=== PATIENT | male | born 1970 | race Caucasian/White ===

== ENCOUNTER 2016-10-21 13:15 | Inpatient (IN) | payer BC, MEDICAID ==
[2016-10-21 14:09] LABS: Mean Corpuscular Hemoglobin 29.7 pg (27-31); Mean Corpuscular Hgb Conc 34.2 g/dl (32-36); Mean Platelet Volume 11.1 fl (6.0-9.5); Platelet Count 182 K/mm3 (150-450); Red Blood Count 4.37 M/mm3 (4.7-6.0); Red Cell Distribution Width 13.2 % (11.5-14.0); White Blood Count 33.7 K/mm3 (4.0-10.5)
[2016-10-21 14:22] LABS: Total Cells Counted 100
[2016-10-21 14:23] LABS: Anion Gap 14.4 mmol/L (6.8-13.8); BUN/Creatinine Ratio 25.6 (9.0-21.6); Bilirubin, Total 1.7 mg/dL (0.0-1.1); Ca. Corrected For Albumin 9.6 mg/dL (8.4-10.2); Calcium * 8.3 mg/dL (7.9-10.9); Carbon Dioxide 29.4 mmol/L (24-32.6); Potassium 3.8 mmol/L (3.4-4.6)
[2016-10-21 14:27] LABS: Band 12 % (0-2.0); Dohle Bodies Trace; Lymphocyte 3 % (20-51); Monocyte 4 % (0-9); Neutrophil 81 % (42-75); Neutrophil # 27.3 K/mm3 (1.3-6.0); Platelet Estimate Normal (NORMAL); RBC Morphology Normal (NORMAL)
[2016-10-21] MEDS ORDERED: NORMAL SALINE 1,000 ML IV ONE (14:36)
[2016-10-21 15:08] LABS: Hemoglobin A1C 6.3 % (4.00-6.0)
[2016-10-21] MEDS ORDERED: AZITHROMYCIN 500 MG in DEXTROSE 5 % IN WATER 250 ML IV ONE ×2 (15:30)
--- NOTE | 2016-10-21 16:10 | ERNOTE ---
Date of Service: 10/21/16 Time Seen by Provider: 10/21/16 14:31 Stated Complaint: URI Source: patient Exam Limitations: no limitations Immunizations: IMMUNIZATION HX Immunizations Up to Date Yes History of Influenza Vaccine No Hx Pneumococcal Vaccination No Allergies/Adverse Reactions: Allergies No Known Allergies Allergy (Verified 10/21/16 13:55) Home Medications: HOME MEDICATIONS NK [No Home Medication] 07/14/15 [Last Taken Unknown] - History of Present Ilness Narrative: Pt. comes in with c/o SOB and cough for 7 days. Pt. states that he has also had malaise, weakness, diaphoresis, and fatigue. Pt. denies any abd pain, NVD, rhinorrhea, alleviating factors or aggravating factors. Pt. denies any chronic illnesses or medications. Pt. is a smoker but has not smoked in the past week. Review of Systems - Review of Systems Constitutional: Present: recent illness, fever, chills, diaphoresis, weakness, fatigue, malaise, weight loss EYE: Present: no symptoms reported ENT: Present: no symptoms reported Respiratory: Present: shortness of breath, cough. Absent: wheezing Cardiology: Present: no symptoms reported. Absent: chest pain, palpitations, edema Gastrointestinal/Abdominal: Present: no symptoms reported. Absent: nausea, vomiting, diarrhea Genitourinary: Present: no symptoms reported Musculoskeletal: Present: no symptoms reported. Absent: back pain, joint pain Skin: Present: no symptoms reported. Absent: rash, dryness Neurological: Present: no symptoms reported. Absent: headache Endocrine: Present: no symptoms reported All Other Systems: All systems neg except as marked - Patient's Past Medical History Patient History - Medical: No pertinent hx Patient History - Cardiac/Respiratory: No pertinent hx Patient History - Cancer: No Hx of Cancer Patient History - Surgical Procedures: Other Patient History - Other: None - Family History mom Family History - Medical: No pertinent hx dad Family History - Medical: No pertinent hx - Social History Living Situations: home Abuse History: No History of abuse Psych History: No pertinent hx Smoking Status: Current every day smoker Have you smoked in the past 12 months: Yes Alcohol Use: occasionally Drug Use: none - Immunizations Immunizations Up to Date: Yes Hx Pneumococcal Vaccination: No History of Influenza Vaccine: No Physical Exam - Physical Exam General Appearance: Present: wd/wn, alert, no apparent distress, cachetic Eye Exam: Normal inspection: bilateral, PERRL: bilateral, EOMI: bilateral Ears, Nose, Throat: Present: normal ENT inspection Neck: Present: normal inspection, nontender. Absent: lymphadenopathy (R), lymphadenopathy (L) Respiratory: Present: no respiratory distress, chest nontender, decreased breath sounds - LML LLL, rhonchi - MALLORY Cardiovascular/Chest: Present: no murmur, normal peripheral pulses, tachycardia Gastrointestinal/Abdominal: Present: normal bowel sounds, nontender, nondistended, soft, no organomegaly Back Exam: Present: normal inspection, normal range of motion, no CVA tenderness , no vertebral tenderness Extremity Exam: Present: normal inspection Neurological Exam: Present: alert, oriented, normal mood/affect, no motor/ sensory deficits Skin Exam: Present: diaphoresis, pallor, other - sallow ED Progress - Date and Time Seen: Date and Time: 10/21/16 16:07 Discussed with cristian palmer and we will admit pt. as he is in the beginning signs of MSOF. - Results and Orders Patient's Lab Results:: I have reviewed the patient's lab results. - Vital Signs Patient's Vital Signs:: I have reviewed the patient's vital signs. Vital Signs: Vital Signs 10/21/16 10/21/16 13:51 15:15 Temperature 35.6 C L Pulse Rate 101 H 101 H Respiratory 16 16 Rate Blood Pressure 106/63 106/63 O2 Sat by Pulse 96 96 Oximetry - X-Ray X-Ray #1 X-Ray: chest Interpretation: Reviewed by me X-ray Comments: MALLORY pneumonia - Progress/Reassessment Chief Complaint: Upper Respiratory Symptoms Progress:: Unchanged Departure - Departure Clinical Impression: SIRS (systemic inflammatory response syndrome), Acute renal insufficiency Pneumonia Qualifiers: Pneumonia type: due to unspecified organism Laterality: left Lung location: upper lobe of lung Qualified Code(s): J18.1 - Lobar pneumonia, unspecified organism Disposition: [facility] Condition: Serious
[2016-10-21 17:20] LABS: Urine Bilirubin 1 mg/dl (NEGATIVE); Urine Ketone Negative (NEGATIVE); Urine Nitrite Negative (NEGATIVE); Urine Protein 30 mg/dL (NEGATIVE); Urine pH 5.5 pH (5.0-7.0)
[2016-10-21 17:28] LABS: Urine Amorphous Sediment Few - 1+ (NONE-FEW); Urine Appearance Clear; Urine Bacteria 1+; Urine Blood 10 /ul (NEGATIVE); Urine Color Dark Yellow; Urine WBC None Seen /hpf (0-5)
[2016-10-21] MEDS ORDERED: ALBUTEROL SULFATE 2.5 MG/3 ML VIAL.NEB IH PRN (17:52)
[2016-10-21] MEDS ORDERED: FLU VACC QS2016-17 36MOS UP/PF 60 MCG/0.5 ML DISP.SYRIN IM ONE (18:05)
[2016-10-21] MEDS: NORMAL SALINE 1,000 ML IV PRN (18:15)
--- NOTE | 2016-10-21 20:56 | HP ---
Chief Complaint - Chief Complaint Date of Service: 10/21/16 Time of Service: 20:17 Chief Complaint: Weakness, Nausea, Vomiting, Abdominal Pain x 7 days. Source of HPI- Pt; reliable, ERP notes. History of Present Illness: Mr. José is a 46-yr-old WM with no pertinent medical history and lacks a PCP. Pt states that for the last 7 days, he has felt very sick. He is unable to state the chronological events of sickness or symptoms, but reports that he has had nausea/vomiting, abdominal pain,headaches & SOB. He thought that he had developed "stomach flu" and so resorted to treating his symptoms with Ibuprofen and Tylenol. He states he has had no appetite but has been forcing himself to drink clear liquids such as Seven-Up soda and sucking on Popsicles. He denies abdominal pain with food/liquid intake. He also denies diarrhea. He reports having low grade fevers and the highest temp he had at home was about 100.4. He states that as the days have gone by, he has progressively gotten weaker and the SOB has gotten worse. He reports having delusions 2 days ago. He finally chose to come to the [facility] ER today as he was not getting any better. During evaluation at the ED, the CXR showed MALLORY lung consolidation suggesting Pneumonia. He also had Leukocytosis with a WBC of 33,700 and left shift. His chemistries showed he had Acute Renal Injury with a BUN/CR of 54/2.11. His billirubin was elevated at 1.7 and ALP level was also high at 301. At the time of physical examination, he appears acutely ill and noted to be in moderate distress. He is visibly SOB and has adventitious LS. Pt will need to be admitted in-patient for a minimum of 2 midnights or more due to CURB -65 score of 2, and with the elevated ALP, Billiurubin, WBC, he requires further medical work-up to determine the etiology. - Patient's Past Medical History Patient History - Medical: No pertinent hx Patient History - Cardiac/Respiratory: No pertinent hx Patient History - Cancer: No Hx of Cancer Patient History - Surgical Procedures: Other Patient History - Other: None - Family History mom Family History - Medical: No pertinent hx dad Family History - Medical: No pertinent hx - Social History Living Situations: home Abuse History: No History of abuse Psych History: No pertinent hx Smoking Status: Current every day smoker Have you smoked in the past 12 months: Yes Do you dip or chew tobacco: No Patient requests Smoking Cessation Consult: Yes Initiate information on Smoking Cessation: Yes Alcohol Use: occasionally Drug Use: none - Immunizations Immunizations Up to Date: Yes Hx Pneumococcal Vaccination: No History of Influenza Vaccine: No Review Of Systems (GEN) - Review of Systems Generalized/Overall Review: Present: Weakness, Chills, Fever, Malaise, Diaphoresis, Fatigue, Weight loss EENTM: Absent: Eye Pain, Blurred Vision, Double Vision, Nose Congestion, Throat Pain Respiratory: Present: Cough, Shortness of Breath Cardiac: Present: Chest Pain. Absent: Palpitations, Syncope Abdominal: Present: Nausea, Vomiting, Abdominal Pain. Absent: Constipation, Diarrhea, Melena, Bright blood from rectum Genitourinary: Absent: Burning, Itching, Urgency, Frequency, Hematuria Musculoskeletal: Present: Muscle Pain. Absent: Joint Pain Neurological: Present: Headache. Absent: Anxiety, Depressed, Emotional Problems , Numbness Skin: Absent: Dryness, Lesions, Lumps Endocrine: Present: Intolerance to Cold, Flushing. Absent: Increased Thirst Misc: All systems neg except as marked Immunizations: IMMUNIZATION HX Immunizations Up to Date Yes History of Influenza Vaccine No Hx Pneumococcal Vaccination No Allergies/Adverse Reactions: Allergies Allergy/AdvReac Type Severity Reaction Status Date / Time No Known Allergies Allergy Verified 10/21/16 13:55 Home Medications: HOME MEDICATIONS NK [No Home Medication] 07/14/15 [Last Taken Unknown] Exam - Exam Vital Signs: Vital Signs - Last Taken Temp 36.8 C 10/21/16 16:50 Pulse 118 H 10/21/16 16:50 Resp 24 H 10/21/16 16:50 BP 146/48 10/21/16 16:50 Pulse Ox 91 10/21/16 16:50 Constitutional: Present: Alert, Oriented x3, Moderate distress, Other - Is ill appearing ENT Exam: Present: normal ENT inspection, hearing grossly normal, dry mucous membranes. Absent: nasal congestion, nasal drainage Eye Exam: bilateral eye: normal inspection, PERRL, conjunctivae pale Neck: Present: full range of motion, supple, normal inspection Back Exam: Present: normal inspection, no CVA tenderness Breasts: Present: Exam deferred Respiratory: Present: accessory muscle use, crackles, rhonchi Cardiovascular/Chest: Present: no chest tenderness, no edema, no JVD, no murmur , tachycardia Abdomen: Present: nondistended, tender, no bowel sounds /Rectal: Present: Exam deferred Extremity: Present: normal range of motion, non-tender, normal inspection, no pedal edema, no calf tenderness Skin Exam: Present: jaundice - Slightly Lymphatic: Present: no adenopathy Neurologic: Present: no motor/sensory deficits, alert, oriented x 3, dizzy/light -headedness Eye contact: Present: cooperative, good eye contact, normal speech Thoughts: Present: normal thought pattern, no apparent hallucination Diagnostic Studies: Abnormal Lab Results 10/21/16 Range/Units 17:11 Urine Protein 30 H (NEGATIVE) mg/dL Urine Blood 10 H (NEGATIVE) /ul Urine Bilirubin 1 H (NEGATIVE) mg/dl Urine Urobilinogen 2.0 H (NORMAL) EU/dl Urine RBC 5-10 H (0-5) /hpf Ur Epithelial Cells 5-10 H (0-5) /hpf Urine Bacteria 1+ H (NONE) Laboratory Results WBC 33.7 K/mm3 (4.0-10.5) H 10/21/16 14:05 RBC 4.37 M/mm3 (4.7-6.0) L 10/21/16 14:05 Hgb 13.0 gm/dL (13.5-18.0) L 10/21/16 14:05 Hct 38.0 % (42.0-52.0) L 10/21/16 14:05 MCV 87.0 fl (78-100) 10/21/16 14:05 MCH 29.7 pg (27-31) 10/21/16 14:05 MCHC 34.2 g/dl (32-36) 10/21/16 14:05 RDW 13.2 % (11.5-14.0) 10/21/16 14:05 Plt Count 182 K/mm3 (150-450) 10/21/16 14:05 MPV 11.1 fl (6.0-9.5) H 10/21/16 14:05 Neutrophils % (Manual) 81 % (42-75) H 10/21/16 14:05 Band Neuts % (Manual) 12 % (0-2.0) H 10/21/16 14:05 Lymphocytes % (Manual) 3 % (20-51) L 10/21/16 14:05 Monocytes % (Manual) 4 % (0-9) 10/21/16 14:05 Neutrophils # (Manual) 27.3 K/mm3 (1.3-6.0) H 10/21/16 14:05 Lymphocytes # (Manual) 1.0 k/mm3 (1.5-3.5) L 10/21/16 14:05 Monocytes # (Manual) 1.3 k/mm3 (0.0-1.0) H 10/21/16 14:05 Toxic Vacuolation 1+ 10/21/16 14:05 Dohle Bodies Trace 10/21/16 14:05 Platelet Estimate Normal (NORMAL) 10/21/16 14:05 RBC Morphology Normal (NORMAL) 10/21/16 14:05 ESR 107 mm/hr (0-10) H 10/21/16 14:20 Sodium 131 mmol/L (132-142) L 10/21/16 14:05 Plasma Sodium 134 mmol/L (130-142) 10/21/16 14:05 Potassium 3.8 mmol/L (3.4-4.6) 10/21/16 14:05 Chloride 91 mmol/L (97-106) L 10/21/16 14:05 Carbon Dioxide 29.4 mmol/L (24-32.6) 10/21/16 14:05 Anion Gap 14.4 mmol/L (6.8-13.8) H 10/21/16 14:05 BUN 54 mg/dL (6-23) H 10/21/16 14:05 Creatinine 2.11 mg/dL (0.4-1.4) H 10/21/16 14:05 Est GFR (Non-Af Amer) 36 mL/min (60-130) L 10/21/16 14:05 BUN/Creatinine Ratio 25.6 (9.0-21.6) H 10/21/16 14:05 Random Glucose 260 mg/dL (70-110) H 10/21/16 14:05 Mean Blood Glucose 124 mg/dL 10/21/16 14:20 Hemoglobin A1c 6.3 % (4.00-6.0) H 10/21/16 14:20 Lactic Acid, Venous 2.0 mmol/L (0.4-2.0) 10/21/16 14:10 Calcium 8.3 mg/dL (7.9-10.9) 10/21/16 14:05 Calcium Adj for Albumin 9.6 mg/dL (8.4-10.2) 10/21/16 14:05 Total Bilirubin 1.7 mg/dL (0.0-1.1) H 10/21/16 14:05 AST 35 U/L (0-48) 10/21/16 14:05 ALT 40 U/L (19-67) 10/21/16 14:05 Alkaline Phosphatase 301 U/L (50-170) H 10/21/16 14:05 C-Reactive Prot, Quant 46.8 mg/dL (0.0-0.9) H 10/21/16 14:10 Total Protein 7.0 gm/dL (6.2-8.2) 10/21/16 14:05 Albumin 2.0 gm/dl (3.4-5.0) L 10/21/16 14:05 Urine Color Dark yellow 10/21/16 17:11 Urine Appearance Clear 10/21/16 17:11 Urine pH 5.5 pH (5.0-7.0) 10/21/16 17:11 Ur Specific [place] 1.010 SP.GR. (1.005-1.030) 10/21/16 17:11 Urine Protein 30 mg/dL (NEGATIVE) H 10/21/16 17:11 Urine Glucose (UA) Negative mg/dL (NEGATIVE) 10/21/16 17:11 Urine Ketones Negative mg/dL (NEGATIVE) 10/21/16 17:11 Urine Blood 10 /ul (NEGATIVE) H 10/21/16 17:11 Urine Nitrate Negative (NEGATIVE) 10/21/16 17:11 Urine Bilirubin 1 mg/dl (NEGATIVE) H 10/21/16 17:11 Urine Ictotest Negative (NEGATIVE) 10/21/16 17:11 Prot Sulfosalicylic Acd Negative mg/dL (0) 10/21/16 17:11 Urine Urobilinogen 2.0 EU/dl (NORMAL) H 10/21/16 17:11 Ur Leukocyte Esterase Negative /ul (NEGATIVE) 10/21/16 17:11 Urine RBC 5-10 /hpf (0-5) H 10/21/16 17:11 Urine WBC None seen /hpf (0-5) 10/21/16 17:11 Ur Epithelial Cells 5-10 /hpf (0-5) H 10/21/16 17:11 Amorphous Sediment Few - 1+ (NONE-FEW) 10/21/16 17:11 Urine Bacteria 1+ (NONE) H 10/21/16 17:11 Influenza Type A Ag Negative (NEGATIVE) 10/21/16 15:35 Influenza Type B Ag Negative (NEGATIVE) 10/21/16 15:35 Mycoplasma pneumon IgM Non reactive (NonReactive) 10/21/16 14:43 Assessment/Plan - Assessment/Plan (1) Pneumonia Assessment: Mr. José presented with worsening SOB. At the time of physical examination, he appeared dyspneic and LS were noted to have coarse crackles. The CXR showed dense consolidation of the MALLORY and his WBC was 33,700 at the ED. Blood and sputum culture are pending. Will cover with IV Azithromycin and Rocephin as there is no history of any recent antibiotic use. Will utilize scheduled Xopenex for SOB and adventitious LS and encourage Cornet q 2 hrs W/A. Will check Urine Legionella & Strep Antigen urine. Problem: Acute Qualifiers: Pneumonia type: due to unspecified organism Laterality: left Lung location: upper lobe of lung Qualified Code(s): J18.1 - Lobar pneumonia, unspecified organism (2) Acute renal insufficiency Assessment: BUN/CR was 54/2.11- Is likely pre-renal due to dehydration from poor oral intake and fevers. Will hydrate with IVF. Monitor BMP in am. Problem: Acute (3) Abnormal LFTs (liver function tests) Assessment: Pt reported nausea/vomiting, fevers, malaise, Pt is noted to be mildly jaundiced and urine is dark beth in colour. He had elevated ALP, & GGT, Total Bilirubin, Direct Bilirubin. I suspect injury to the bile ducts. Consider US of the Liver/gall bladder to look for intrahepatic or extrahepatic biliary ductal dilatation, cholecystitis and gall stones. Problem: Acute (4) Acute cholecystitis Assessment: Pt is noted to have SIRS ( fever, elevated WBC & elavted CRP). Pt does not have RUQ pain as such but is tender throughout his abdomen on palpation. He has had fevers, N/V. Will need and Ultrasound of the Abdomen to confirm the diagnosis. CT of the Abdomen may have been better in order see a wider differential differential diagnoses, however, pt cannot undergo that imaging due to poor kidney function/elevated creatinine. Will keep NPO, Provide IVF hydration. Cover with Metronidazole 500mg IV Q 8 plus Cetriaxone 2 gm q 24 hours to cover for Enterococci, E coli, & Clostridium. Monitor closely as he could easily progress to Sepsis. Problem: Suspected (5) Leukocytosis Problem: Acute (6) Elevated serum alkaline phosphatase level Problem: Acute
[2016-10-21 21:30] LABS: Bilirubin Direct 1.5 mg/dL (0.0-0.3)
[2016-10-21] MEDS: LEVALBUTEROL HCL 1.25 MG/3 ML AMPUL IH SCH (22:23)
[2016-10-22] MEDS: ACETAMINOPHEN 325 MG TABLET PO PRN ×3 (00:33→20:16)
[2016-10-22] MEDS: metroNIDAZOLE/SODIUM CHLORIDE 500 MG/100 ML BAG IV SCH ×3 (02:55→17:58)
[2016-10-22] MEDS: LEVALBUTEROL HCL 1.25 MG/3 ML AMPUL IH SCH ×6 (02:59→23:27)
--- NOTE | 2016-10-22 06:35 | PN ---
Subjective - Date and Time Seen Date: 10/22/16 Time: 06:27 Subjective Narrative: Mr. José examined this am. He is alert and in no distress. He feels less SOB, but is still coughing productive thick [place] phlegm. He complains of generalized abd. Pain. IVF rate decreased to 75 ml/hr due to worsening LS & SOB. He was febrile with a temp of 38.5 overnight. HR remained Tachycardic until 0300am. This morning HR is < 100. No other issues according to nursing. Objective - Vitals Vitals: Last Vital Signs Temp 36.4 C L 10/22/16 02:24 Pulse 103 H 10/22/16 03:09 Resp 24 H 10/22/16 03:09 BP 150/75 10/22/16 02:24 Pulse Ox 99 10/22/16 02:59 - Abnormal Lab Findings Abnormal Lab Findings: Abnormal Lab Results 10/21/16 Range/Units 17:11 Urine Protein 30 H (NEGATIVE) mg/dL Urine Blood 10 H (NEGATIVE) /ul Urine Bilirubin 1 H (NEGATIVE) mg/dl Urine Urobilinogen 2.0 H (NORMAL) EU/dl Urine RBC 5-10 H (0-5) /hpf Ur Epithelial Cells 5-10 H (0-5) /hpf Urine Bacteria 1+ H (NONE) - Exam Constitutional: Present: Alert, Oriented x3, No distress ENT Exam: Present: normal ENT inspection. Absent: nasal congestion, nasal drainage Neck: Present: full range of motion, supple, normal inspection Respiratory: Present: no accessory muscle use, decreased breath sounds, rales - On the LT base. Cardiovascular/Chest: Present: normal peripheral pulses, regular rate, rhythm, no chest tenderness, no edema, no murmur Abdomen: Present: tender, guarding, no bowel sounds /Rectal: Present: Exam deferred Extremity: Present: normal range of motion, non-tender, normal inspection, no pedal edema, no calf tenderness Skin Exam: Present: warm/dry, no cyanosis Lymphatic: Present: no adenopathy Neurologic: Present: no motor/sensory deficits, alert, oriented x 3. Absent: dizzy/light-headedness Appearance: Present: appropriate appearance, appropriate insight Eye contact: Present: cooperative, good eye contact, normal speech Thoughts: Present: normal thought pattern, no apparent hallucination Assessment/Plan - Problems/Diagnosis (1) Pneumonia Problem: Acute Qualifiers: Pneumonia type: due to unspecified organism Laterality: left Lung location: upper lobe of lung Qualified Code(s): J18.1 - Lobar pneumonia, unspecified organism Narrative: Mr. José presented with worsening SOB. At the time of physical examination, he appeared dyspneic and LS were noted to have coarse crackles. The CXR showed dense consolidation of the MALLORY and his WBC was 33,700 at the ED. Blood and sputum culture are pending. Will cover with IV Azithromycin and Rocephin as there is no history of any recent antibiotic use. Will utilize scheduled Xopenex for SOB and adventitious LS and encourage Cornet q 2 hrs W/A. Will check Urine Legionella & Strep Antigen urine. CBC in am. 10/22- Feels less SOB but still coughing. Has not required any oxygen supplementation. WBC 41716-----> 31,700. (2) Acute renal insufficiency Problem: Acute Narrative: BUN/CR was 54/2.11- Is likely pre-renal due to dehydration from poor oral intake and fevers. Will hydrate with IVF. Monitor BMP in am. 10/22- IVF rate had to be tunred down to 75ml/hr due to worsening LS and SOB. This am BUN/CR- 38/1.42 Continue IVF hydration. (3) Abnormal LFTs (liver function tests) Problem: Acute Narrative: Pt reported nausea/vomiting, fevers, malaise, Pt is noted to be mildly jaundiced and urine is dark beth in colour. He had elevated ALP, & GGT, Total Bilirubin, Direct Bilirubin. I suspect injury to the bile ducts. Consider US of the Liver/gall bladder to look for intrahepatic or extrahepatic biliary ductal dilatation, cholecystitis and gall stones. (4) Acute cholecystitis Problem: Suspected Narrative: Pt is noted to have SIRS ( fever, elevated WBC & elavted CRP). Pt does not have RUQ pain as such but is tender throughout his abdomen on palpation. He has had fevers, N/V. Will need and Ultrasound of the Abdomen to confirm the diagnosis. CT of the Abdomen may have been better in order see a wider differential differential diagnoses, however, pt cannot undergo that imaging due to poor kidney function/elevated creatinine. Will keep NPO, Provide IVF hydration. Cover with Metronidazole 500mg IV Q 8 plus Cetriaxone 2 gm q 24 hours to cover for Enterococci, E coli, & Clostridium. Monitor closely as he could easily progress to Sepsis. (5) Leukocytosis Problem: Acute (6) Elevated serum alkaline phosphatase level Problem: Acute
[2016-10-22 06:36] LABS: Hematocrit 35.2 % (42.0-52.0); Hemoglobin 12.3 gm/dL (13.5-18.0); Mean Cell Volume 86.9 fl (78-100); Mean Corpuscular Hemoglobin 30.4 pg (27-31); Mean Corpuscular Hgb Conc 34.9 g/dl (32-36); Mean Platelet Volume 10.9 fl (6.0-9.5); Platelet Count 201 K/mm3 (150-450); Red Blood Count 4.05 M/mm3 (4.7-6.0); Red Cell Distribution Width 13.3 % (11.5-14.0); White Blood Count 31.7 K/mm3 (4.0-10.5)
[2016-10-22 06:42] LABS: Anion Gap 12.5 mmol/L (6.8-13.8); BUN/Creatinine Ratio 26.8 (9.0-21.6); Calcium * 7.7 mg/dL (7.9-10.9); Carbon Dioxide 28.7 mmol/L (24-32.6); Estimated Creat Clear 68.5; Potassium 3.2 mmol/L (3.4-4.6)
[2016-10-22 06:47] LABS: Total Cells Counted 100
[2016-10-22 06:49] LABS: Band 14 % (0-2.0); Dohle Bodies 1+; Immature Granulocyte 3 (0-1); Lymphocyte 1 % (20-51); Neutrophil 82 % (42-75); Platelet Estimate Normal (NORMAL)
[2016-10-22 06:50] LABS: RBC Morphology Normal (NORMAL); Toxic Granulation 1+
[2016-10-22] MEDS: NORMAL SALINE 1,000 ML IV PRN (07:49)
[2016-10-22] MEDS ORDERED: AZITHROMYCIN 250 MG TABLET PO SCH (09:00)
[2016-10-22] MEDS ORDERED: FLU VACC QS2016-17 36MOS UP/PF 60 MCG/0.5 ML DISP.SYRIN IM ONE (09:00)
[2016-10-22] MEDS: HEPARIN SODIUM,PORCINE 5,000 UNITS/ML VIAL SC SCH ×2 (09:54→20:16)
[2016-10-22] MEDS ORDERED: POTASSIUM CHLORIDE 40 MEQ in NORMAL SALINE 1,000 ML IV SCH (13:15)
[2016-10-22] MEDS: AZITHROMYCIN 500 MG in DEXTROSE 5 % IN WATER 250 ML IV SCH ×2 (15:45)
[2016-10-23] MEDS: ACETAMINOPHEN 325 MG TABLET PO PRN ×2 (01:35→11:40)
[2016-10-23] MEDS: LEVALBUTEROL HCL 1.25 MG/3 ML AMPUL IH SCH ×6 (02:13→23:17)
[2016-10-23] MEDS: metroNIDAZOLE/SODIUM CHLORIDE 500 MG/100 ML BAG IV SCH ×3 (02:16→19:13)
[2016-10-23] MEDS: POTASSIUM CHLORIDE 20 MEQ in NORMAL SALINE 1,000 ML IV SCH ×3 (02:17→23:07)
[2016-10-23 06:20] LABS: Hemoglobin 10.7 gm/dL (13.5-18.0); Mean Cell Volume 87.6 fl (78-100); Mean Corpuscular Hemoglobin 30.2 pg (27-31); Mean Corpuscular Hgb Conc 34.5 g/dl (32-36); Mean Platelet Volume 11.2 fl (6.0-9.5); Platelet Count 199 K/mm3 (150-450); Red Blood Count 3.54 M/mm3 (4.7-6.0); Red Cell Distribution Width 13.6 % (11.5-14.0); White Blood Count 16.1 K/mm3 (4.0-10.5)
[2016-10-23 06:21] LABS: Total Cells Counted 100
[2016-10-23 06:35] LABS: Albumin * 1.6 gm/dl (3.4-5.0); Anion Gap 11.2 mmol/L (6.8-13.8); BUN/Creatinine Ratio 22.7 (9.0-21.6); Bilirubin, Total 0.6 mg/dL (0.0-1.1); Ca. Corrected For Albumin 9.3 mg/dL (8.4-10.2); Calcium * 7.7 mg/dL (7.9-10.9); Chol/HDL Risk Ratio 13.2 mg/dL (3.3-5.0); Potassium 3.2 mmol/L (3.4-4.6); Total Protein 5.7 gm/dL (6.2-8.2)
[2016-10-23 06:46] LABS: Band 3 % (0-2.0); Immature Granulocyte 9 (0-1); Lymphocyte 9 % (20-51); Monocyte 9 % (0-9); Neutrophil 70 % (42-75); Neutrophil # 11.3 K/mm3 (1.3-6.0)
[2016-10-23 06:47] LABS: Platelet Estimate Normal (NORMAL)
[2016-10-23 06:48] LABS: Dohle Bodies Trace; Toxic Granulation 1+
[2016-10-23 06:49] LABS: Giant Platelets 1+
[2016-10-23 06:50] LABS: Hypochromia 1+
[2016-10-23 06:51] LABS: Target Cells Trace
[2016-10-23] MEDS: HEPARIN SODIUM,PORCINE 5,000 UNITS/ML VIAL SC SCH ×2 (08:41→21:10)
[2016-10-23] MEDS ORDERED: POTASSIUM CHLORIDE 20 MEQ TABLET.SA PO ONE (12:30)
--- NOTE | 2016-10-23 12:31 | PN ---
Subjective - Date and Time Seen Date: 10/23/16 Time: 12:16 Subjective Narrative: Patient continues to feel better. WBC is down to 16.1, LFT's improving. Objective - Review of Systems Generalized/Overall Review: Denies: Chills, Fever EENTM: Reports: No Symptoms Reported Respiratory: Reports: Cough. Denies: Shortness of Breath, Wheezing Cardiac: Denies: Chest Pain, Edema, Palpitations Abdominal: Denies: Nausea, Vomiting Genitourinary Symptoms: Denies: Urgency, Frequency Musculoskeletal Complaints: Denies: Joint Pain - Vitals Vitals: Last Vital Signs Temp 36.5 C 10/23/16 11:26 Pulse 88 10/23/16 11:33 Resp 19 10/23/16 11:33 BP 137/73 10/23/16 11:26 Pulse Ox 96 10/23/16 11:33 - Abnormal Lab Findings Abnormal Lab Findings: Abnormal Lab Results 10/23/16 10/23/16 Range/Units 05:48 05:48 WBC 16.1 H D (4.0-10.5) K/mm3 RBC 3.54 L (4.7-6.0) M/mm3 Hgb 10.7 L (13.5-18.0) gm/dL Hct 31.0 L (42.0-52.0) % MPV 11.2 H (6.0-9.5) fl Band Neuts % (Manual) 3 H (0-2.0) % Lymphocytes % (Manual) 9 L (20-51) % Immature Granulocytes 9 H (0-1) Neutrophils # (Manual) 11.3 H (1.3-6.0) K/mm3 Lymphocytes # (Manual) 1.4 L (1.5-3.5) k/mm3 Monocytes # (Manual) 1.4 H (0.0-1.0) k/mm3 Potassium 3.2 L (3.4-4.6) mmol/L BUN/Creatinine Ratio 22.7 H (9.0-21.6) Random Glucose 153 H (70-110) mg/dL Calcium 7.7 L (7.9-10.9) mg/dL AST 57 H (0-48) U/L Alkaline Phosphatase 242 H (50-170) U/L Total Protein 5.7 L (6.2-8.2) gm/dL Albumin 1.6 L (3.4-5.0) gm/dl HDL Cholesterol 11 L (40-60) mg/dL Cholesterol/HDL Ratio 13.2 H (3.3-5.0) mg/dL - Exam Constitutional: Present: Alert, Oriented x3, Cooperative ENT Exam: Present: hearing grossly normal Neck: Present: supple Breasts: Present: Exam deferred Respiratory: Present: decreased breath sounds, No rales, No wheezing Cardiovascular/Chest: Present: regular rate, rhythm, no JVD, no murmur Abdomen: Present: Normal bowel sounds, soft, nontender, nondistended Extremity: Present: no pedal edema, no calf tenderness Assessment/Plan - Problems/Diagnosis (1) Pneumonia Problem: Acute Qualifiers: Pneumonia type: due to unspecified organism Laterality: left Lung location: upper lobe of lung Qualified Code(s): J18.1 - Lobar pneumonia, unspecified organism Narrative: clinically improving. WBC coming down. (2) Abnormal LFTs (liver function tests) Problem: Acute Narrative: improving likely due to SIRS/sepsis. (3) Acute renal insufficiency Problem: Resolved Narrative: although BUN/Cr ratio is still elevated. continue with IVF. Will give Klor Con . (4) Leukocytosis Problem: Acute Qualifiers: Leukocytosis type: bandemia Qualified Code(s): D72.825 - Bandemia Narrative: improving
[2016-10-23] MEDS: AZITHROMYCIN 500 MG in DEXTROSE 5 % IN WATER 250 ML IV SCH ×2 (16:03)
[2016-10-24] MEDS: metroNIDAZOLE/SODIUM CHLORIDE 500 MG/100 ML BAG IV SCH ×3 (01:41→17:36)
[2016-10-24] MEDS: LEVALBUTEROL HCL 1.25 MG/3 ML AMPUL IH SCH ×4 (03:00→15:39)
--- NOTE | 2016-10-24 07:57 | PN ---
Subjective - Date and Time Seen Date: 10/24/16 Time: 07:53 Subjective Narrative: Patient feeling better. Eager to go home. Objective - Review of Systems Generalized/Overall Review: Denies: Chills, Fever EENTM: Reports: No Symptoms Reported Respiratory: Reports: Cough, Shortness of Breath Cardiac: Denies: Chest Pain, Palpitations Abdominal: Denies: Nausea, Vomiting Genitourinary Symptoms: Denies: Urgency, Frequency Musculoskeletal Complaints: Denies: Joint Pain - Vitals Vitals: Last Vital Signs Temp 37.2 C 10/24/16 07:35 Pulse 82 10/24/16 07:35 Resp 18 10/24/16 07:35 BP 126/69 10/24/16 07:35 Pulse Ox 99 10/24/16 07:35 - Exam Constitutional: Present: Alert, Oriented x3, Cooperative ENT Exam: Present: hearing grossly normal Neck: Present: supple Breasts: Present: Exam deferred Respiratory: Present: decreased breath sounds, No rales, No wheezing Cardiovascular/Chest: Present: regular rate, rhythm, no JVD, no murmur Abdomen: Present: Normal bowel sounds, soft, nontender Extremity: Present: no pedal edema, no calf tenderness Assessment/Plan - Problems/Diagnosis (1) Pneumonia Problem: Acute Qualifiers: Pneumonia type: due to unspecified organism Laterality: left Lung location: upper lobe of lung Qualified Code(s): J18.1 - Lobar pneumonia, unspecified organism Narrative: follow up labs and CXR. possible discharge in a.m. if continues to improve. (2) Abnormal LFTs (liver function tests) Problem: Acute Narrative: follow up labs. (3) Acute renal insufficiency Problem: Resolved (4) Leukocytosis Problem: Acute Qualifiers: Leukocytosis type: bandemia Qualified Code(s): D72.825 - Bandemia
[2016-10-24 08:26] LABS: Albumin * 1.6 gm/dl (3.4-5.0); Anion Gap 12.3 mmol/L (6.8-13.8); BUN/Creatinine Ratio 17.4 (9.0-21.6); Bilirubin, Total 0.7 mg/dL (0.0-1.1); Ca. Corrected For Albumin 9.1 mg/dL (8.4-10.2); Calcium * 7.5 mg/dL (7.9-10.9); Carbon Dioxide 24.8 mmol/L (24-32.6); Potassium 4.1 mmol/L (3.4-4.6); Total Protein 5.6 gm/dL (6.2-8.2)
[2016-10-24] MEDS: POTASSIUM CHLORIDE 20 MEQ in NORMAL SALINE 1,000 ML IV SCH ×2 (08:28→22:23)
[2016-10-24 08:30] LABS: Hematocrit 33.3 % (42.0-52.0); Hemoglobin 11.2 gm/dL (13.5-18.0); Mean Cell Volume 89.3 fl (78-100); Mean Corpuscular Hgb Conc 33.6 g/dl (32-36); Mean Platelet Volume 11.1 fl (6.0-9.5); Platelet Count 229 K/mm3 (150-450); Red Blood Count 3.73 M/mm3 (4.7-6.0); Red Cell Distribution Width 13.7 % (11.5-14.0); White Blood Count 13.2 K/mm3 (4.0-10.5)
[2016-10-24] MEDS: HEPARIN SODIUM,PORCINE 5,000 UNITS/ML VIAL SC SCH ×2 (08:30→21:51)
[2016-10-24 08:31] LABS: Total Cells Counted 100
[2016-10-24 08:55] LABS: Atypical (Reactive) Lymph 1 % (0-2); Band 5 % (0-2.0); Eosinophil 3 % (0-3); Immature Granulocyte 4 (0-1); Lymphocyte 11 % (20-51); Monocyte 11 % (0-9); Neutrophil 65 % (42-75); Neutrophil # 8.6 K/mm3 (1.3-6.0)
[2016-10-24 08:56] LABS: Platelet Estimate Normal (NORMAL)
[2016-10-24 08:58] LABS: RBC Morphology Normal (NORMAL)
[2016-10-24] MEDS ORDERED: FLU VACC QS2016-17 36MOS UP/PF 60 MCG/0.5 ML DISP.SYRIN IM ONE (09:00)
[2016-10-24 09:45] LABS: Hepatitis C Antibody NON-REACTIVE (NON-REACTIVE); Hepatitis Panel Confirmation DNR
[2016-10-24 10:50] LABS: Hepatitis A IgM Antibody NON-REACTIVE (NON-REACTIVE); Hepatitis B Surface Antigen NON-REACTIVE (NON-REACTIVE)
[2016-10-24] MEDS: AZITHROMYCIN 500 MG in DEXTROSE 5 % IN WATER 250 ML IV SCH ×2 (14:12)
[2016-10-24] MEDS: ACETAMINOPHEN 325 MG TABLET PO PRN (16:38)
[2016-10-24] MEDS ORDERED: LEVALBUTEROL HCL 1.25 MG/3 ML AMPUL IH PRN (17:30)
[2016-10-25] MEDS: metroNIDAZOLE/SODIUM CHLORIDE 500 MG/100 ML BAG IV SCH ×3 (01:26→17:38)
[2016-10-25] MEDS: POTASSIUM CHLORIDE 20 MEQ in NORMAL SALINE 1,000 ML IV SCH ×2 (07:21→19:40)
[2016-10-25 08:04] LABS: Hematocrit 36.3 % (42.0-52.0); Mean Cell Volume 89.4 fl (78-100); Mean Corpuscular Hemoglobin 29.6 pg (27-31); Mean Corpuscular Hgb Conc 33.1 g/dl (32-36); Mean Platelet Volume 10.4 fl (6.0-9.5); Platelet Count 293 K/mm3 (150-450); Red Blood Count 4.06 M/mm3 (4.7-6.0); Red Cell Distribution Width 13.7 % (11.5-14.0); White Blood Count 17.7 K/mm3 (4.0-10.5)
[2016-10-25 08:05] LABS: Total Cells Counted 100
[2016-10-25 08:17] LABS: Albumin * 1.7 gm/dl (3.4-5.0); Anion Gap 12.5 mmol/L (6.8-13.8); BUN/Creatinine Ratio 16.5 (9.0-21.6); Bilirubin, Total 0.7 mg/dL (0.0-1.1); Ca. Corrected For Albumin 9.1 mg/dL (8.4-10.2); Calcium * 7.6 mg/dL (7.9-10.9); Carbon Dioxide 23.8 mmol/L (24-32.6); Potassium 4.3 mmol/L (3.4-4.6); Total Protein 5.9 gm/dL (6.2-8.2)
[2016-10-25 08:33] LABS: Atypical (Reactive) Lymph 3 % (0-2); Band 9 % (0-2.0); Immature Granulocyte 9 (0-1); Lymphocyte 11 % (20-51); Monocyte 8 % (0-9); Neutrophil 60 % (42-75); Neutrophil # 10.6 K/mm3 (1.3-6.0)
[2016-10-25 08:34] LABS: Platelet Estimate Normal (NORMAL)
[2016-10-25 08:36] LABS: Hypochromia Trace
--- NOTE | 2016-10-25 08:37 | PN ---
Subjective - Date and Time Seen Date: 10/25/16 Time: 08:26 Subjective Narrative: Patient is afebrile. CXR shows new opacity in the LLL but WBC continues to go down. LFT's are up again. His girlfriend gave him OTC Tylenol last night. Objective - Review of Systems Generalized/Overall Review: Denies: Chills, Fever EENTM: Reports: No Symptoms Reported Respiratory: Reports: Cough, Shortness of Breath Cardiac: Reports: Chest Pain. Denies: Edema, Palpitations Abdominal: Denies: Nausea, Vomiting, Abdominal Pain Genitourinary Symptoms: Denies: Urgency, Frequency Musculoskeletal Complaints: Denies: Joint Pain - Vitals Vitals: Last Vital Signs Temp 37.3 C 10/25/16 06:42 Pulse 71 10/25/16 07:21 Resp 20 10/25/16 06:42 BP 144/66 10/25/16 06:42 Pulse Ox 93 10/25/16 06:42 - Abnormal Lab Findings Abnormal Lab Findings: Abnormal Lab Results 10/24/16 10/24/16 10/25/16 Range/Units 08:06 08:06 08:00 WBC 13.2 H 17.7 H D (4.0-10.5) K/mm3 RBC 3.73 L 4.06 L (4.7-6.0) M/mm3 Hgb 11.2 L 12.0 L (13.5-18.0) gm/dL Hct 33.3 L 36.3 L (42.0-52.0) % MPV 11.1 H 10.4 H (6.0-9.5) fl Band Neuts % (Manual) 5 H (0-2.0) % Lymphocytes % (Manual) 11 L (20-51) % Monocytes % (Manual) 11 H (0-9) % Immature Granulocytes 4 H (0-1) Neutrophils # (Manual) 8.6 H (1.3-6.0) K/mm3 Monocytes # (Manual) 1.5 H (0.0-1.0) k/mm3 Random Glucose 125 H (70-110) mg/dL Calcium 7.5 L (7.9-10.9) mg/dL AST 103 H (0-48) U/L ALT 107 H (19-67) U/L Alkaline Phosphatase 277 H (50-170) U/L Total Protein 5.6 L (6.2-8.2) gm/dL Albumin 1.6 L (3.4-5.0) gm/dl - Exam Constitutional: Present: Alert, Oriented x3, Cooperative ENT Exam: Present: hearing grossly normal Neck: Present: supple Breasts: Present: Exam deferred Respiratory: Present: decreased breath sounds, No rales, No wheezing Cardiovascular/Chest: Present: regular rate, rhythm, no JVD, no murmur Abdomen: Present: Normal bowel sounds, soft, nontender, nondistended Extremity: Present: no pedal edema, no calf tenderness Assessment/Plan - Problems/Diagnosis (1) Pneumonia Problem: Acute Qualifiers: Pneumonia type: due to unspecified organism Laterality: left Lung location: upper lobe of lung Qualified Code(s): J18.1 - Lobar pneumonia, unspecified organism Narrative: CXR shows stable findings with new opacity in LLL- aspiraation? on Metronidazole /Rocephin. consider Clindamyicn but WBC is going down 13.1 and clinically better. Continue IV antibiotics. possible discharge in the morning . will change to oral Abx when WBC is back to normal. (2) Abnormal LFTs (liver function tests) Problem: Acute Narrative: elevated again. Girlfriend gave him " OTC tyelnol " last night. consider UDS. he was told that he should tell the nurse before taking any medication from the outside. (3) Acute renal insufficiency Problem: Resolved (4) Leukocytosis Problem: Acute Qualifiers: Leukocytosis type: bandemia Qualified Code(s): D72.825 - Bandemia Narrative: continues to improve
[2016-10-25] MEDS: HEPARIN SODIUM,PORCINE 5,000 UNITS/ML VIAL SC SCH ×2 (08:38→20:07)
[2016-10-25] MEDS: AZITHROMYCIN 500 MG in DEXTROSE 5 % IN WATER 250 ML IV SCH ×2 (14:40)
[2016-10-25 17:45] LABS: Cocaine Ur Negative (NEGATIVE); Urine Barbiturate Negative (NEGATIVE); Urine Benzodiazepines Negative (NEGATIVE); Urine Opiates Negative (NEGATIVE); Urine PCP Negative (NEGATIVE); Urine THC Negative (NEGATIVE)
[2016-10-25] MEDS: ACETAMINOPHEN 325 MG TABLET PO PRN (19:01)
[2016-10-26] MEDS: POTASSIUM CHLORIDE 20 MEQ in NORMAL SALINE 1,000 ML IV SCH ×4 (00:46→23:45)
[2016-10-26] MEDS: metroNIDAZOLE/SODIUM CHLORIDE 500 MG/100 ML BAG IV SCH (01:31)
[2016-10-26] MEDS: ACETAMINOPHEN 325 MG TABLET PO PRN ×2 (05:07→16:08)
[2016-10-26 05:46] LABS: Hematocrit 33.3 % (42.0-52.0); Hemoglobin 11.2 gm/dL (13.5-18.0); Mean Cell Volume 90.2 fl (78-100); Mean Corpuscular Hemoglobin 30.4 pg (27-31); Mean Corpuscular Hgb Conc 33.6 g/dl (32-36); Mean Platelet Volume 10.6 fl (6.0-9.5); Platelet Count 346 K/mm3 (150-450); Red Blood Count 3.69 M/mm3 (4.7-6.0); Red Cell Distribution Width 13.4 % (11.5-14.0); White Blood Count 15.4 K/mm3 (4.0-10.5)
[2016-10-26 05:51] LABS: Total Cells Counted 100
[2016-10-26 06:05] LABS: Atypical (Reactive) Lymph 2 % (0-2); Band 9 % (0-2.0); Giant Platelets 1+; Immature Granulocyte 9 (0-1); Lymphocyte 9 % (20-51); Monocyte 2 % (0-9); Neutrophil 69 % (42-75); Neutrophil # 10.6 K/mm3 (1.3-6.0); Platelet Estimate Normal (NORMAL); Polychromasia 1+
[2016-10-26 06:06] LABS: Albumin * 1.7 gm/dl (3.4-5.0); Anion Gap 7.7 mmol/L (6.8-13.8); BUN/Creatinine Ratio 14.3 (9.0-21.6); Bilirubin, Total 0.5 mg/dL (0.0-1.1); Calcium * 7.5 mg/dL (7.9-10.9); Carbon Dioxide 26.5 mmol/L (24-32.6); Potassium 4.2 mmol/L (3.4-4.6); Total Protein 5.4 gm/dL (6.2-8.2)
[2016-10-26] MEDS: HEPARIN SODIUM,PORCINE 5,000 UNITS/ML VIAL SC SCH ×2 (09:07→21:28)
--- NOTE | 2016-10-26 09:39 | PN ---
Subjective - Date and Time Seen Date: 10/26/16 Time: 09:36 Subjective Narrative: Clinically patient is feeling better except for chest pain when he coughs on his left. His WBC is up to 17 as well as his LFT. He says it was vicodin that he got from his girlfriend. Objective - Review of Systems Generalized/Overall Review: Denies: Chills, Fever EENTM: Reports: No Symptoms Reported Respiratory: Reports: Cough. Denies: Shortness of Breath Cardiac: Reports: Chest Pain. Denies: Edema, Palpitations Abdominal: Denies: Nausea, Vomiting, Abdominal Pain Genitourinary Symptoms: Denies: Urgency, Frequency Musculoskeletal Complaints: Denies: Joint Pain - Vitals Vitals: Last Vital Signs Temp 36.6 C 10/26/16 07:44 Pulse 88 10/26/16 08:00 Resp 20 10/26/16 07:44 BP 120/68 10/26/16 07:44 Pulse Ox 96 10/26/16 07:44 - Abnormal Lab Findings Abnormal Lab Findings: Abnormal Lab Results 10/25/16 10/26/16 10/26/16 Range/Units 08:00 05:00 05:00 WBC 15.4 H (4.0-10.5) K/mm3 RBC 3.69 L (4.7-6.0) M/mm3 Hgb 11.2 L (13.5-18.0) gm/dL Hct 33.3 L (42.0-52.0) % MPV 10.6 H (6.0-9.5) fl Band Neuts % (Manual) 9 H 9 H (0-2.0) % Lymphocytes % (Manual) 11 L 9 L (20-51) % Immature Granulocytes 9 H 9 H (0-1) Neutrophils # (Manual) 10.6 H 10.6 H (1.3-6.0) K/mm3 Lymphocytes # (Manual) 1.4 L (1.5-3.5) k/mm3 Monocytes # (Manual) 1.4 H (0.0-1.0) k/mm3 Atypic/Reactive Lymphs 3 H (0-2) % Random Glucose 124 H (70-110) mg/dL Calcium 7.5 L (7.9-10.9) mg/dL AST 78 H (0-48) U/L ALT 155 H (19-67) U/L Alkaline Phosphatase 242 H (50-170) U/L Total Protein 5.4 L (6.2-8.2) gm/dL Albumin 1.7 L (3.4-5.0) gm/dl - Exam Constitutional: Present: Alert, Oriented x3, Cooperative ENT Exam: Present: hearing grossly normal Neck: Present: supple Respiratory: Present: decreased breath sounds, No rales, No wheezing Cardiovascular/Chest: Present: regular rate, rhythm, no JVD, no murmur Abdomen: Present: Normal bowel sounds, soft, nontender, nondistended Extremity: Present: no pedal edema, no calf tenderness Assessment/Plan - Problems/Diagnosis (1) Pneumonia Problem: Acute Qualifiers: Pneumonia type: due to unspecified organism Laterality: left Lung location: upper lobe of lung Qualified Code(s): J18.1 - Lobar pneumonia, unspecified organism Narrative: WBC rising up again. Tmax 38.3 . new LLL consolidation, with narcotic intake- silent aspiration? r/o aspiration pneumonia- will change to Zosyn and add vanco. continue with Azitrhromycin. he denies diarrhea. (2) Abnormal LFTs (liver function tests) Problem: Acute Narrative: starting go up again. took vicodin the other night. (3) Acute renal insufficiency Problem: Resolved (4) Leukocytosis Problem: Acute Qualifiers: Leukocytosis type: bandemia Qualified Code(s): D72.825 - Bandemia Narrative: starting to go up again.
[2016-10-26] MEDS ORDERED: PIPERACILLIN SODIUM/TAZOBACTAM 2.25 GM VIAL IV SCH (09:45)
[2016-10-26] MEDS: PIPERACILLIN SODIUM/TAZOBACTAM 3.375 GM in DEXTROSE 5 % IN WATER 100 ML IV SCH ×4 (11:46→17:30)
[2016-10-26] MEDS: VANCOMYCIN HCL 1.5 GM in DEXTROSE 5 % IN WATER 500 ML IV SCH ×2 (14:13)
[2016-10-26] MEDS: AZITHROMYCIN 500 MG in DEXTROSE 5 % IN WATER 250 ML IV SCH ×2 (16:00)
[2016-10-27] MEDS: PIPERACILLIN SODIUM/TAZOBACTAM 3.375 GM in DEXTROSE 5 % IN WATER 100 ML IV SCH ×6 (02:10→17:53)
[2016-10-27] MEDS: VANCOMYCIN HCL 1.5 GM in DEXTROSE 5 % IN WATER 500 ML IV SCH ×4 (02:18→13:34)
[2016-10-27] MEDS: ACETAMINOPHEN 325 MG TABLET PO PRN ×2 (05:27→20:06)
[2016-10-27 06:47] LABS: Hematocrit 33.2 % (42.0-52.0); Mean Cell Volume 91.2 fl (78-100); Mean Corpuscular Hemoglobin 30.2 pg (27-31); Mean Corpuscular Hgb Conc 33.1 g/dl (32-36); Mean Platelet Volume 10.3 fl (6.0-9.5); Platelet Count 419 K/mm3 (150-450); Red Blood Count 3.64 M/mm3 (4.7-6.0); Red Cell Distribution Width 13.2 % (11.5-14.0); White Blood Count 13.5 K/mm3 (4.0-10.5)
[2016-10-27 06:53] LABS: Total Cells Counted 100
[2016-10-27 07:10] LABS: Albumin * 1.7 gm/dl (3.4-5.0); Anion Gap 13.3 mmol/L (6.8-13.8); BUN/Creatinine Ratio 14.6 (9.0-21.6); Bilirubin, Total 0.5 mg/dL (0.0-1.1); Ca. Corrected For Albumin 8.8 mg/dL (8.4-10.2); Calcium * 7.3 mg/dL (7.9-10.9); Carbon Dioxide 23.7 mmol/L (24-32.6); Total Protein 5.5 gm/dL (6.2-8.2)
[2016-10-27 07:18] LABS: Band 4 % (0-2.0); Eosinophil 1 % (0-3); Immature Granulocyte 7 (0-1); Lymphocyte 14 % (20-51); Monocyte 3 % (0-9); Neutrophil 71 % (42-75); Neutrophil # 9.6 K/mm3 (1.3-6.0)
[2016-10-27 07:19] LABS: Platelet Estimate Normal (NORMAL); RBC Morphology Normal (NORMAL)
[2016-10-27] MEDS: POTASSIUM CHLORIDE 20 MEQ in NORMAL SALINE 1,000 ML IV SCH (07:49)
--- NOTE | 2016-10-27 08:31 | PN ---
Subjective - Date and Time Seen Date: 10/27/16 Time: 08:27 Subjective Narrative: Patient CTS was postponed due to inability to find vein for proper size IV. Low grade fever. WBC is trending down. Objective - Review of Systems Generalized/Overall Review: Reports: Fever. Denies: Weakness, Chills EENTM: Reports: No Symptoms Reported Respiratory: Reports: Cough, Shortness of Breath. Denies: Wheezing Cardiac: Denies: Chest Pain, Palpitations Abdominal: Denies: Nausea, Vomiting Genitourinary Symptoms: Denies: Urgency, Frequency Musculoskeletal Complaints: Denies: Joint Pain - Vitals Vitals: Last Vital Signs Temp 37 C 10/27/16 07:16 Pulse 88 10/27/16 07:16 Resp 18 10/27/16 07:16 BP 128/76 10/27/16 07:16 Pulse Ox 98 10/27/16 07:16 - Abnormal Lab Findings Abnormal Lab Findings: Abnormal Lab Results 10/27/16 10/27/16 Range/Units 06:36 06:36 WBC 13.5 H (4.0-10.5) K/mm3 RBC 3.64 L (4.7-6.0) M/mm3 Hgb 11.0 L (13.5-18.0) gm/dL Hct 33.2 L (42.0-52.0) % MPV 10.3 H (6.0-9.5) fl Band Neuts % (Manual) 4 H (0-2.0) % Lymphocytes % (Manual) 14 L (20-51) % Immature Granulocytes 7 H (0-1) Neutrophils # (Manual) 9.6 H (1.3-6.0) K/mm3 Carbon Dioxide 23.7 L (24-32.6) mmol/L Random Glucose 130 H (70-110) mg/dL Calcium 7.3 L (7.9-10.9) mg/dL ALT 115 H (19-67) U/L Alkaline Phosphatase 211 H (50-170) U/L Total Protein 5.5 L (6.2-8.2) gm/dL Albumin 1.7 L (3.4-5.0) gm/dl - Exam Constitutional: Present: Alert, Oriented x3, Cooperative ENT Exam: Present: hearing grossly normal Neck: Present: supple Breasts: Present: Exam deferred Respiratory: Present: decreased breath sounds, No rales, No wheezing Cardiovascular/Chest: Present: regular rate, rhythm, no JVD, no murmur Abdomen: Present: Normal bowel sounds, soft, nontender, nondistended Extremity: Present: no pedal edema, no calf tenderness Assessment/Plan - Problems/Diagnosis (1) Pneumonia Problem: Acute Qualifiers: Pneumonia type: due to unspecified organism Laterality: left Lung location: upper lobe of lung Qualified Code(s): J18.1 - Lobar pneumonia, unspecified organism Narrative: came in with CAP and then possible aspiration pneumonia while in hospital . IV antibiotics changed from IV Rocephin, Metronidazole , Azitrhomycin to IV Zosyn, Vanco, Azityhromycin for possible aspiration due to new consolidation LLL after taking narcotics from his girlfriend. would have wanted CTS to help with management. will repeat CXR. will increase IVF to help vein open up and reschedule CTS in am. ADDENDUM: He did have a CTS w/o contrast. (2) Abnormal LFTs (liver function tests) Problem: Acute Narrative: continues to improve again. (3) Acute renal insufficiency Problem: Resolved (4) Leukocytosis Problem: Acute Qualifiers: Leukocytosis type: bandemia Qualified Code(s): D72.825 - Bandemia Narrative: improving again.
[2016-10-27] MEDS: HEPARIN SODIUM,PORCINE 5,000 UNITS/ML VIAL SC SCH ×2 (09:29→20:06)
[2016-10-27] MEDS: AZITHROMYCIN 500 MG in DEXTROSE 5 % IN WATER 250 ML IV SCH ×2 (14:00)
[2016-10-28] MEDS: VANCOMYCIN HCL 1.5 GM in DEXTROSE 5 % IN WATER 500 ML IV SCH ×4 (02:52→15:28)
[2016-10-28] MEDS: PIPERACILLIN SODIUM/TAZOBACTAM 3.375 GM in DEXTROSE 5 % IN WATER 100 ML IV SCH ×6 (02:54→18:45)
[2016-10-28 06:28] LABS: Hematocrit 32.4 % (42.0-52.0); Hemoglobin 10.8 gm/dL (13.5-18.0); Mean Cell Volume 90.8 fl (78-100); Mean Corpuscular Hemoglobin 30.3 pg (27-31); Mean Corpuscular Hgb Conc 33.3 g/dl (32-36); Mean Platelet Volume 9.5 fl (6.0-9.5); Neutrophil # 5.8 K/mm3 (1.3-6.0); Platelet Count 453 K/mm3 (150-450); Red Blood Count 3.57 M/mm3 (4.7-6.0); Red Cell Distribution Width 13.3 % (11.5-14.0); White Blood Count 9.7 K/mm3 (4.0-10.5)
[2016-10-28 06:35] LABS: Albumin * 1.8 gm/dl (3.4-5.0); Anion Gap 9.7 mmol/L (6.8-13.8); Bilirubin, Total 0.4 mg/dL (0.0-1.1); Ca. Corrected For Albumin 9.1 mg/dL (8.4-10.2); Calcium * 7.7 mg/dL (7.9-10.9); Carbon Dioxide 28.1 mmol/L (24-32.6); Potassium 3.8 mmol/L (3.4-4.6); Total Protein 5.5 gm/dL (6.2-8.2)
[2016-10-28] MEDS: HEPARIN SODIUM,PORCINE 5,000 UNITS/ML VIAL SC SCH ×2 (09:45→21:18)
--- NOTE | 2016-10-28 13:04 | PN ---
Subjective - Date and Time Seen Date: 10/28/16 Time: 13:00 Subjective Narrative: Patient very eager to go home today. I told him that this is only the 3rd of IV Zosyn/Vanco and his last fever was 10/27/16. Objective - Review of Systems Generalized/Overall Review: Denies: Chills, Fever EENTM: Reports: No Symptoms Reported Respiratory: Reports: Cough. Denies: Shortness of Breath, Wheezing Cardiac: Denies: Chest Pain, Palpitations Abdominal: Denies: Nausea, Vomiting Genitourinary Symptoms: Denies: Urgency, Frequency - Vitals Vitals: Last Vital Signs Temp 36.8 C 10/28/16 09:54 Pulse 88 10/28/16 09:54 Resp 18 10/28/16 09:54 BP 144/78 10/28/16 09:54 Pulse Ox 96 10/28/16 09:54 - Abnormal Lab Findings Abnormal Lab Findings: Abnormal Lab Results 10/28/16 10/28/16 Range/Units 06:17 06:17 RBC 3.57 L (4.7-6.0) M/mm3 Hgb 10.8 L (13.5-18.0) gm/dL Hct 32.4 L (42.0-52.0) % Plt Count 453 H (150-450) K/mm3 Immature Gran % (Auto) 11.60 H (0.001-0.429) % Immature Gran # (Auto) 1.13 H (0.000-0.0310) K/mm3 Lymphocytes % 19.6 L (20-51) % Random Glucose 146 H (70-110) mg/dL Calcium 7.7 L (7.9-10.9) mg/dL ALT 102 H (19-67) U/L Alkaline Phosphatase 188 H (50-170) U/L Total Protein 5.5 L (6.2-8.2) gm/dL Albumin 1.8 L (3.4-5.0) gm/dl - Exam Constitutional: Present: Alert, Oriented x3, Cooperative ENT Exam: Present: hearing grossly normal Neck: Present: supple Breasts: Present: Exam deferred Respiratory: Present: decreased breath sounds, No rales, No wheezing Abdomen: Present: Normal bowel sounds, soft, nontender, nondistended Extremity: Present: no pedal edema, no calf tenderness Assessment/Plan - Problems/Diagnosis (1) Pneumonia Problem: Acute Qualifiers: Pneumonia type: due to unspecified organism Laterality: left Lung location: upper lobe of lung Qualified Code(s): J18.1 - Lobar pneumonia, unspecified organism Narrative: continue with IV Zosyn and Vanco. For discharge in am. (2) Abnormal LFTs (liver function tests) Problem: Acute Narrative: improved (3) Acute renal insufficiency Problem: Resolved (4) Leukocytosis Problem: Resolved Qualifiers: Leukocytosis type: bandemia Qualified Code(s): D72.825 - Bandemia
[2016-10-28] MEDS ORDERED: VANCOMYCIN HCL LEVEL XX ONE (13:30)
[2016-10-28] MEDS: ACETAMINOPHEN 325 MG TABLET PO PRN ×2 (14:52→23:44)
[2016-10-28] MEDS: AZITHROMYCIN 500 MG in DEXTROSE 5 % IN WATER 250 ML IV SCH ×2 (18:44)
[2016-10-29] MEDS: PIPERACILLIN SODIUM/TAZOBACTAM 3.375 GM in DEXTROSE 5 % IN WATER 100 ML IV SCH ×2 (02:21)
[2016-10-29] MEDS: VANCOMYCIN HCL 1.5 GM in DEXTROSE 5 % IN WATER 500 ML IV SCH ×2 (02:27)
[2016-10-29 06:55] VITALS: BP 124/78
--- NOTE | 2016-10-29 07:58 | DS ---
(1) Pneumonia Diagnosis(s): clinically resolving Problem: Acute Qualifiers: Pneumonia type: due to unspecified organism Laterality: left Lung location: upper lobe of lung Qualified Code(s): J18.1 - Lobar pneumonia, unspecified organism (2) Abnormal LFTs (liver function tests) Diagnosis(s): improved Problem: Acute (3) Acute renal insufficiency Problem: Resolved (4) Leukocytosis Problem: Resolved Qualifiers: Leukocytosis type: bandemia Qualified Code(s): D72.825 - Bandemia Description of Stay: Mr. José is a 46-yr-old WM with no pertinent medical history and lacks a PCP who was admitted on 10/22/16 for shortness of breath. Pt states that for the last 7 days, he has felt very sick. He is unable to state the chronological events of sickness or symptoms, but reports that he has had nausea/vomiting, abdominal pain,headaches & SOB. He thought that he had developed "stomach flu" and so resorted to treating his symptoms with Ibuprofen and Tylenol. He states he has had no appetite but has been forcing himself to drink clear liquids such as Seven-Up soda and sucking on Popsicles. He denies abdominal pain with food/ liquid intake. He also denies diarrhea. He reports having low grade fevers and the highest temp he had at home was about 100.4. He states that as the days have gone by, he has progressively gotten weaker and the SOB has gotten worse. He reports having delusions 2 days ago. He finally chose to come to the [facility] ER today as he was not getting any better. During evaluation at the ED, the CXR showed MALLORY lung consolidation suggesting Pneumonia. He also had Leukocytosis with a WBC of 33,700 and left shift. His chemistries showed he had Acute Renal Injury with a BUN/CR of 54/2.11. His billirubin was elevated at 1.7 and ALP level was also high at 301. He was started on IV Rocephin, Azithromycin and Flagyl was added as his LFT were also elevated. His WBC started to go down but on the 4 th hospital day his WBC started to go up again and repat CXR showed a new LLL consolidation . His IV antibiotics was changed to IV Zosyn and IV vanco for suspicion of silent aspiration . Azithromycin was continued. His WBC went down to normal count and his fever lyzed. He is fever free for the last 48 hours. He is going home on oral antibiotics. Procedures Performed: none Discharge Disposition: Home self care Disposition: Home self-care Condition: Good Discharge Activity: Activity as tolerated Discharge Diet: General/regular food Additional Patient Instructions (free text): Follow up with me in 1 week on 11-06-16 @ 2:00pm. please come @ 1:30 to fill out paperwork for new patient. Prescriptions (Any new or edited meds): Clindamycin HCl [Cleocin HCl] 300 mg PO TID #15 capsule Levofloxacin [Levaquin] 750 mg PO DAILY #5 tablet Complete Home Medications List: Complete Home Medication List: Clindamycin HCl [Cleocin HCl] 300 mg PO TID #15 capsule 10/29/16 Levofloxacin [Levaquin] 750 mg PO DAILY #5 tablet 10/29/16
[2016-10-29] MEDS ORDERED: VANCOMYCIN HCL 1.75 GM in DEXTROSE 5 % IN WATER 500 ML IV SCH ×2 (14:00)
== END 2016-10-29 10:00 | disposition home or self-care (01) | DRG 195 ==
LOC: ER 13:15 → MS 16:33
PROVIDERS: ADMIT Internal Medicine; ATTEND Internal Medicine
DX: J18.9 Pneumonia, unspecified organism (principal); N28.9 Disorder of kidney and ureter, unspecified; D72.825 Bandemia; R94.5 Abnormal results of liver function studies; F17.210 Nicotine dependence, cigarettes, uncomplicated; Z23 Encounter for immunization
CPT/HCPCS: 36415; 71020; 71260; 76700; 80048; 80053; 80061; 80074; 80202; 80307; 81001; 82150; 82248; 82977; 83036; 83605; 83690; 85007; 85025; 85652; 86140; 86738; 87040; 87070; 87400; 87449; 90686; 94640; 96365; 96367; 99283; G0008